=== PATIENT | male | born 1965 | race Caucasian/White ===

== ENCOUNTER 2021-07-23 14:48 | Emergency (ER) | payer BC, SELFPAY ==
--- NOTE | ~2021-07-23 | XR_ITS ---
EXAMINATION: XR FOOT, LEFT CLINICAL INFORMATION: Foot pain COMPARISON: None TECHNIQUE: AP, lateral, and oblique views of the left foot. FINDINGS: Bones of the midfoot are well aligned. No tarsal, metatarsal or phalangeal fracture. Prominent plantar calcaneal enthesophytes. No focal soft tissue swelling. No radiopaque foreign body. XR/XR foot LT 2V IMPRESSION: No fracture.
[2021-07-23 15:06] VITALS: BP 195/105; PULSE 74; RESP 18; TEMP 37; O2SAT 97; BMI 32.8
--- NOTE | 2021-07-23 15:41 | ED.EXTPRO ---
HPI - Extremity Problem General Chief complaint: Extremity Injury, Lower Stated complaint: foot injury Time Seen by Provider: 07/23/21 15:22 Source: patient Mode of arrival: ambulatory Limitations: no limitations History of Present Illness HPI Narrative: 56-year-old male with a past medical history of plantar fasciitis presenting to the ED with complaints of left foot pain on the plantar aspect after he picked up a box this morning and he reports when he bears weight he has severe pain. Reports he suffers from plantar fasciitis although has insoles and has not had pain like this for years although it feels like his prior plantar fasciitis pain. He denies any dizziness, lightheadedness, headache, neck pain/stiffness, chest pain or shortness of breath, dyspnea exertion, orthopnea, palpitations, lower extremity edema or calf tenderness, recent falls or any other symptoms complaints or concerns at this time. MD Complaint: extremity pain Onset (ago): day(s) (This morning) Pain Consistency: constant Location: left and other (Foot) Quality: stabbing, aching and sharp Radiation: none Relieving factors: nothing Exacerbating factors: weight bearing Associated symptoms: denies other symptoms Context: other (hx of plantar fascitis ) Related Data Previous Rx's Medication Instructions Recorded acetaminophen 500 mg tablet 1,000 mg PO QID PRN #14 tab 07/23/21 (Tylenol Extra Strength) ibuprofen 800 mg tablet 800 mg PO Q8H PRN #14 tab 07/23/21 lidocaine HCl 4 % topical cream 1 appl TOPICAL BID PRN #120 g 07/23/21 (Aspercreme (lidocaine HCl)) oxycodone 5 mg tablet 5 mg PO Q6H PRN #14 tab 07/23/21 Allergies Allergy/AdvReac Type Severity Reaction Status Date / Time No Known Allergies Allergy Verified 07/23/21 16:33 Review of Systems Review of Systems: Constitutional : No Weight loss, No Fever, No Chills, No Night Sweats, No Fatigue, No Malaise ENT/Mouth : No Hearing loss, No Ear Pain, No Nasal Congestion, No Sinus Pain, No Hoarseness, No sore throat, No Rhinorrhea, No Swallowing Difficulty Eyes: No Eye Pain, No Swelling, No Redness, No Foreign Body, No Discharge, No Vision Changes Cardiovascular : No Chest Pain, No SOB, No Dyspnea on Exertion, No Orthopnea, No Edema, No Palpitations Respiratory : No Cough, No Sputum, No Wheezing, No Smoke Exposure, No Dyspnea Gastrointestinal : No Nausea, No Vomiting, No Diarrhea, No Constipation, No abdominal Pain, No Hematochezia, No Melena Genitourinary : no irregular bleeding, No Dysuria, No Urinary Frequency, No Hematuria, No Urinary Incontinence, No Urgency, No Flank Pain, No Urinary Flow Changes, No Hesitancy Musculoskeletal : + left foot joint pain, No Myalgias, No Joint Swelling Skin : No Skin Lesions, No rash Neuro : No Weakness, No Numbness, No Paresthesias, No Loss of Consciousness, No Dizziness, No Headache Psych : No Anxiety/Panic, No Depression, No SI/HI/AH/VH, No Social Issues, Heme/Lymph: No Bruising, No Bleeding,No Lymphadenopathy Endocrine : No Polyuria, No Polydipsia, No Temperature Intolerance Yes all other systems are reviewed and are negative [facility] Past Medical History Attestation statement: The following information was validated with the patient. Medical History HLD (hyperlipidemia) HTN (hypertension) Social History Social History Advance Directives: No Advance Directives Information Provided: No Physical Exam Vital Signs: Vital Signs: Last Vital Signs Temp 98.6 F 07/23/21 15:06 Pulse 74 07/23/21 15:06 Resp 18 07/23/21 15:06 BP 195/105 H 07/23/21 15:06 Pulse Ox 97 07/23/21 15:06 Body Mass Index 32.8 vital signs have been reviewed as normal and appeared to be correct. Blood pressure hypertensive at 195/105. Heart rate normal. Respiration rate normal. Temperature normal. Oxygen saturation normal. Appearance: Alert. Oriented X3. No acute distress. Head: Normal external exam. Normocephalic. Atraumatic. Eyes: PERRLA. EOMI. Conjunctiva and sclera normal. Eyelids normal. ENT: Pharynx normal. Uvula midline. Moist mucous membranes. Neck: Normal inspection. Neck supple. FROM. CVS: Normal heart rate and rhythm. Respiratory: No respiratory distress. Painless inspiration. Skin: Skin warm and dry. Normal skin color. Normal skin turgor. No rashes/lesions/lacerations noted. Extremities: Patient with tenderness up patient to the left foot on the so at the plantar aspect consistent with plantar fasciitis. No signs of infection. No calf tenderness is noted bilaterally. No lower extremity edema. Otherwise all other Extremities exhibit normal range of motion and nontender. Neuro: Oriented X 3. No motor deficit. No sensory deficit. Reflexes normal. Normal steady gait. No focal neuro deficits noted. Vascular: + radial pulses/+ 2 distal pedal pulses/+2 dorsalis pedis b/l. Normal cap refill. No cyanosis noted to upper extremity nails and lower extremity toes nails. Course Course Course Narrative: 56-year-old male with a past medical history of plantar fasciitis presenting to the ED with complaints of left foot pain on the plantar aspect after he picked up a box this morning and he reports when he bears weight he has severe pain. Reports he suffers from plantar fasciitis although has insoles and has not had pain like this for years although it feels like his prior plantar fasciitis pain. He denies any dizziness, lightheadedness, headache, neck pain/stiffness, chest pain or shortness of breath, dyspnea exertion, orthopnea, palpitations, lower extremity edema or calf tenderness, recent falls or any other symptoms complaints or concerns at this time. On exam patient has tenderness palpation to the plantar aspect consistent with plantar fasciitis. Not consistent with Achilles tendon rupture. No obvious deformities noted. No signs of infection. No lower extremity edema or calf tenderness is noted. Therefore x-ray obtained if negative will DC home with symptomatic treatment instructions to follow-up with die cast technician/PCP. Patient understands agrees with this plan. MDM - Extremity (Nontraumatic) Medical Records Attestation: I reviewed the patient's medical records. Imaging Data X-ray of left foot: Attestation: I personally reviewed and interpreted this imaging study as follows: Radiologist's impression: FINDINGS: Bones of the midfoot are well aligned. No tarsal, metatarsal or phalangeal fracture. Prominent plantar calcaneal enthesophytes. No focal soft tissue swelling. No radiopaque foreign body.? XR/XR foot LT 2V IMPRESSION: No fracture. Discharge Plan Discharge Clinical Impression: Plantar fasciitis of left foot Patient Disposition: Home, Self-Care Instructions: Plantar Fasciitis (ED), Plantar Fasciitis Exercises (ED) Prescriptions: New lidocaine HCl [Aspercreme (lidocaine HCl)] 4 % cream 1 appl topical BID PRN (Reason: pain) Qty: 120 RF: 0 ibuprofen 800 mg tablet 800 mg PO Q8H PRN (Reason: pain) Qty: 14 RF: 0 acetaminophen [Tylenol Extra Strength] 500 mg tablet 1,000 mg PO QID PRN (Reason: fever or pain) Qty: 14 RF: 0 oxycodone 5 mg tablet 5 mg PO Q6H PRN (Reason: pain) Qty: 14 RF: 0 Referrals: Sly Kohler MD [Physician] - 2 weeks Jaclyn Hill NP [Primary Care Provider] - 2 days Eric Little [Physician] - 2 days Print Language: Turkish
[2021-07-23 17:16] VITALS: BP 154/86; PULSE 73; RESP 17; O2SAT 98
== END 2021-07-23 17:18 | disposition home or self-care (01) ==
PROVIDERS: Emergency Provider Emergency Medicine; PCP Nurse Practitioner Family
DX: M72.2 Plantar fascial fibromatosis (principal); I10 Essential (primary) hypertension
CPT/HCPCS: 73620; 99283

== ENCOUNTER 2021-10-20 18:50 | Emergency (ER) | payer BC, SELFPAY ==
--- NOTE | ~2021-10-20 | US_ITS ---
EXAMINATION: US VENOUS ULTRASOUND WITH DOPPLER LOWER EXTREMITY, RIGHT CLINICAL INFORMATION: Right lower extremity pain and swelling. COMPARISON: None TECHNIQUE: Ultrasound of the deep veins is performed from the hip to the calf with compression sonography and color and pulse Doppler assessment. Spectral analysis with color-flow imaging is performed. FINDINGS: There is normal venous compression and respiratory variation and augmented flow. The visualized common femoral vein, superficial femoral vein, profunda femoral vein, popliteal vein, and the trifurcation region shows no evidence of deep venous thrombosis. There is no significant popliteal fossa cyst. Prominent right inguinal lymph nodes but with preserved fatty hilum and reniform shape, likely reactive. If the patient's symptoms persist, followup ultrasound in 5 days 7 days might be of value to exclude proximal propagation from a non-visualized calf vein. US/US venous duplex LE RT IMPRESSION: No DVT demonstrated in the right lower extremity. Prominent right inguinal lymph nodes are likely reactive, correlate with physical examination.
--- NOTE | ~2021-10-20 | XR_ITS ---
EXAMINATION: XR KNEE, RIGHT CLINICAL INFORMATION: Pain/swelling. COMPARISON: None. TECHNIQUE: Four views of the right knee. FINDINGS: No acute fractures or malalignment. Mild tricompartmental degenerative changes with joint space narrowing, subcortical sclerosis and minimal osteophyte. These are more apparent in the medial compartment. Small enthesophytes the superior pole of the patella. Well-corticated bony fragment adjacent to the head of the proximal fibula, likely sequela of a prior injury or degenerative in nature. Small joint effusion. XR/XR knee RT 3V IMPRESSION: No acute fractures or malalignment. Mild degenerative osteoarthritis. Small joint effusion.
[2021-10-20 19:14] VITALS: BP 150/76; PULSE 89; RESP 20; TEMP 36.2; O2SAT 97; BMI 34.2
--- NOTE | 2021-10-20 21:57 | ED_ITS ---
HPI - Extremity Problem General Chief complaint: Extremity Problem Stated complaint: rt leg swollen ? clot Time Seen by Provider: 10/20/21 19:12 Source: patient Mode of arrival: ambulatory Limitations: no limitations History of Present Illness HPI Narrative: 56 years old male came in for evaluation of right knee pain. Right knee pain and swelling started 3 days ago, described pain as moderate 5/10, constant, with no radiation, patient was seen and evaluated by his PCP yesterday did blood workup, patient return to the emergency room after notice increased swelling in the right leg, right knee with worsening of the pain to severe 10/10. Patient declined any fever or chills, no trauma to the right knee, able to bend the knee with pain. No history or concern of STD. Related Data Previous Rx's Medication Instructions Recorded acetaminophen 500 mg tablet 1,000 mg PO QID PRN #14 tab 07/23/21 (Tylenol Extra Strength) ibuprofen 800 mg tablet 800 mg PO Q8H PRN #14 tab 07/23/21 lidocaine HCl 4 % topical cream 1 appl TOPICAL BID PRN #120 g 07/23/21 (Aspercreme (lidocaine HCl)) oxycodone 5 mg tablet 5 mg PO Q6H PRN #14 tab 07/23/21 cephalexin 500 mg capsule 500 mg PO BID 10 Days #20 cap 10/20/21 ibuprofen 600 mg tablet 600 mg PO Q8H PRN #14 tab 10/20/21 sulfamethoxazole 800 1 tab PO BID #20 tab 10/20/21 mg-trimethoprim 160 mg tablet (Bactrim DS) Allergies Allergy/AdvReac Type Severity Reaction Status Date / Time No Known Allergies Allergy Verified 10/20/21 19:22 Review of Systems Review of Systems: all other systems are reviewed and are negative Constitutional: Reports as per HPI and Reports no additional constitutional complaints Eyes: Reports as per HPI and Reports no additional eye complaints Reports system reviewed and no additional complaints, except as documented Cardiovascular: Reports as per HPI and Reports no additional cardiovascular complaints Respiratory: Reports as per HPI and Reports no additional respiratory complaints Gastrointestinal: Reports as per HPI and Reports no additional gastrointestinal complaints Genitourinary: Reports no additional female genitourinary complaints Musculoskeletal: Reports no additional musculoskeletal complaints Skin/Breast: Reports system reviewed and no additional complaints, except as docu Psychiatric: Reports no additional psychiatric complaints Endocrine: Reports no additional endocrine complaints Hematologic/Lymphatic: Reports no additional hematologic/lymphatic complaints Allergic/Immunologic: Reports no additional allergic/immunologic complaints Reports system reviewed and no additional complaints, except as documented and Reports Abnormal speech present [facility] Past Medical History Medical History HLD (hyperlipidemia) HTN (hypertension) Social History Social History Advance Directives: No Physical Exam Vital Signs: Vital Signs: Last Vital Signs Temp 97.2 F 10/20/21 19:14 Pulse 89 10/20/21 19:14 Resp 20 10/20/21 19:14 BP 150/76 H 10/20/21 19:14 Pulse Ox 97 10/20/21 19:14 BMI result Body Mass Index 34.2 Vital signs have been reviewed as appeared to be correct. Blood pressure normal. Heart rate normal. Respiration rate normal. Temperature normal. O xygen saturation normal. Appearance: Alert. Oriented X3. No acute distress. Head: Normal external exam. Normocephalic. Atraumatic. No Wade signs noted. No raccoon eyes noted Eyes: PERRLA. EOMI. Conjunctiva and sclera normal. Eyelids normal. ENT: TM's Normal. Pharynx normal. Uvula midline. Moist mucous membranes. No trismus noted. No drooling noted. No muffled voice noted. Neck: Normal inspection. Neck supple. FROM. No adenopathy. Thyroid Normal. No meningeal signs. No neck mass noted. CVS: Normal heart rate and rhythm. Heart sound normal. No murmurs noted. Pulses normal throughout. Respiratory: No respiratory distress. Painless inspiration. Breath sounds normal. No wheezes/rales/rhonchi noted. Chest nontender. No accessory muscle usage noted or decreased air movement noted. Abdomen: Soft and nontender. Bowel sounds normal in all 4 quadrants. No d istention noted. No organomegaly noted. No visible injury noted. Back: No CVA tenderness. Full range of motion noted. Skin: Skin warm and dry. Normal skin color. Normal skin turgor. No rashes/l esions/lacerations noted. Extremities: Right knee exam: Diffuse redness and hotness over right knee and right leg, right leg edema +2 pitting edema, right knee joint effusion, limited range motion due to pain. Neuro: Oriented X 3. Cranial nerve exam: II-XII are grossly intact No motor deficit. No sensory deficit. Reflexes normal. Course Course Course Narrative: Assessment and plan. Two days of right knee/ leg pain and swelling, no history of trauma. 1. Right knee x-ray showing no fracture or malalignment, right knee ultrasound showing no DVT, patient has and elevated WBCs, elevation sed rate, elevation of CRP, right knee arthrocentesis fluid analyses not consistent with septic arthritis. Will treat the patient with Keflex/ Bactrim for 7 days. MDM - Extremity (Nontraumatic) Lab Data Result diagrams: 10/20/21 22:17 10/20/21 22:17 Labs: Lab Results 10/20/21 10/20/21 10/20/21 Range/Units 22:17 22:17 22:17 WBC 14.1 H (4.8-10.8) X10*3/uL RBC 4.42 L (4.60-5.80) X10*6/uL Hgb 13.2 L (14.0-18.0) g/dl Hct 39.4 L (42.0-52.0) % MCV 89.1 (80.0-98.0) fL MCH 29.9 (27.0-33.0) pg MCHC 33.5 (31.0-36.0) g/dl RDW 12.6 (11.0-16.0) % Plt Count 206 (160-400) X10*3/uL MPV 10.1 (9.4-12.4) fL Immature Gran % (Auto) 0.3 (0.0-0.4) % Neut % (Auto) 68.2 (45-73) % Lymph % (Auto) 17.6 L (20-40) % Anderson % (Auto) 12.7 H (2-11) % Eos % (Auto) 1.0 (0-4) % Baso % (Auto) 0.2 (0-2) % Lymph # (Auto) 2.5 (1.2-4.9) X10*3/uL Anderson # (Auto) 1.8 H (0.1-1.2) X10*3/uL Eos # (Auto) 0.1 (0.0-0.4) X10*3/uL Baso # (Auto) 0.0 (0.0-0.2) X10*3/uL Abs Immat Gran (auto) 0.04 H (0.00-0.03) X10*3/uL Absolute Neuts (auto) 9.6 H (2.0-8.3) x10*3/uL Absolute Nucleated RBC 0.000 (0.0-0.012) X10*3/uL Nucleated RBC % (auto) 0.0 (0.0-0.2) /100WBC Smear Tech's Comments VERIFIED ESR 18 H (0-15) MM/HR Sodium 140 (135-145) mmol/L Potassium 4.2 (3.3-5.1) mmol/L Chloride 108 (96-108) mmol/L Carbon Dioxide 25 (22-29) mmol/L Anion Gap 11 L (12-20) BUN 25 H (9-16) mg/dL Creatinine 0.91 (0.5-1.4) mg/dL Estim Creat Clear Calc 112.1 Estimated GFR > 60 Random Glucose 100 (60-115) mg/dL Calcium 8.8 (8.4-10.2) mg/dL C-Reactive Protein 5.92 H (< or = 0.50) mg/dL C-React Prot High Sens Synovial Source Synovial WBC X10*3/uL Synovial RBC X10*6/uL 10/20/21 10/20/21 Range/Units 22:17 22:25 WBC (4.8-10.8) X10*3/uL RBC (4.60-5.80) X10*6/uL Hgb (14.0-18.0) g/dl Hct (42.0-52.0) % MCV (80.0-98.0) fL MCH (27.0-33.0) pg MCHC (31.0-36.0) g/dl RDW (11.0-16.0) % Plt Count (160-400) X10*3/uL MPV (9.4-12.4) fL Immature Gran % (Auto) (0.0-0.4) % Neut % (Auto) (45-73) % Lymph % (Auto) (20-40) % Anderson % (Auto) (2-11) % Eos % (Auto) (0-4) % Baso % (Auto) (0-2) % Lymph # (Auto) (1.2-4.9) X10*3/uL Anderson # (Auto) (0.1-1.2) X10*3/uL Eos # (Auto) (0.0-0.4) X10*3/uL Baso # (Auto) (0.0-0.2) X10*3/uL Abs Immat Gran (auto) (0.00-0.03) X10*3/uL Absolute Neuts (auto) (2.0-8.3) x10*3/uL Absolute Nucleated RBC (0.0-0.012) X10*3/uL Nucleated RBC % (auto) (0.0-0.2) /100WBC Smear Tech's Comments ESR (0-15) MM/HR Sodium (135-145) mmol/L Potassium (3.3-5.1) mmol/L Chloride (96-108) mmol/L Carbon Dioxide (22-29) mmol/L Anion Gap (12-20) BUN (9-16) mg/dL Creatinine (0.5-1.4) mg/dL Estim Creat Clear Calc Estimated GFR Random Glucose (60-115) mg/dL Calcium (8.4-10.2) mg/dL C-Reactive Protein (< or = 0.50) mg/dL C-React Prot High Sens Cancelled Synovial Source right knee Synovial WBC 0.519 X10*3/uL Synovial RBC 0.179 X10*6/uL Procedures Joint Aspiration/Injection Joint Asp./Inject. 1: Time Out Performed: Yes Side of body: right Joint Aspirated: knee Ultrasound Guidance: No Skin Prep: Povidone-Iodine1% Local Anesthetic: lidocaine 2% Amount of anesthesia used (mL): 10 Total fluid obtained (mL): 30 Patient Tolerated Procedure: well Complications: none Discharge Plan Discharge Clinical Impression: Cellulitis, Lower extremity edema Patient Disposition: Home, Self-Care Instructions: Cellulitis (ED), Leg Edema (ED) Additional Instructions: elevate your right leg, avoid standing for prolonged time, seek medical attention if he develops fever, or increased swelling in the right knee. Prescriptions: New cephalexin 500 mg capsule 500 mg PO BID 10 Days Qty: 20 RF: 0 sulfamethoxazole-trimethoprim [Bactrim DS] 800-160 mg tablet 1 tab PO BID Qty: 20 RF: 0 ibuprofen 600 mg tablet 600 mg PO Q8H PRN (Reason: pain) Qty: 14 RF: 0 No Action lidocaine HCl [Aspercreme (lidocaine HCl)] 4 % cream 1 appl topical BID PRN (Reason: pain) Qty: 120 RF: 0 ibuprofen 800 mg tablet 800 mg PO Q8H PRN (Reason: pain) Qty: 14 RF: 0 acetaminophen [Tylenol Extra Strength] 500 mg tablet 1,000 mg PO QID PRN (Reason: fever or pain) Qty: 14 RF: 0 oxycodone 5 mg tablet 5 mg PO Q6H PRN (Reason: pain) Qty: 14 RF: 0 Referrals: Evie Zarate PA-C [Primary Care Provider] - 2 days Stand Alone Forms: Work/School Release
[2021-10-20 22:23] LABS: Basophils Percent Auto 0.2 % (0-2); Eosinophils Absolute Auto 0.1 X10*3/uL (0.0-0.4); Hematocrit 39.4 % (42.0-52.0); Hemoglobin 13.2 g/dl (14.0-18.0); Imm Gran Abs Auto 0.04 X10*3/uL (0.00-0.03); Imm Gran Pct Auto 0.3 % (0.0-0.4); Lymphocytes Absolute Auto 2.5 X10*3/uL (1.2-4.9); Lymphocytes Percent Auto 17.6 % (20-40); MANUAL DIFF FLAG SCAN; Mean Corpuscular HGB Conc 33.5 g/dl (31.0-36.0); Mean Corpuscular Hemoglobin 29.9 pg (27.0-33.0); Mean Corpuscular Volume 89.1 fL (80.0-98.0); Mean Platelet Volume 10.1 fL (9.4-12.4); Monocytes Absolute Auto 1.8 X10*3/uL (0.1-1.2); Monocytes Percent Auto 12.7 % (2-11); Neutrophils Absolute Auto 9.6 x10*3/uL (2.0-8.3); Neutrophils Percent Auto 68.2 % (45-73); Platelet Count 206 X10*3/uL (160-400); Red Blood Count 4.42 X10*6/uL (4.60-5.80); Red Cell Distribution Width 12.6 % (11.0-16.0); SCAN SMEAR FLAG 1; White Blood Count 14.1 X10*3/uL (4.8-10.8)
[2021-10-20 22:38] LABS: Anion Gap 11 (12-20); Blood Urea Nitrogen 25 mg/dL (9-16); Calcium 8.8 mg/dL (8.4-10.2); Carbon Dioxide 25 mmol/L (22-29); Chloride 108 mmol/L (96-108); Creatinine Clr Calc Pharmacy 112.1; Estimated Glomerular Filt Rate > 60; Glucose Random 100 mg/dL (60-115); Potassium 4.2 mmol/L (3.3-5.1); Sodium 140 mmol/L (135-145)
[2021-10-20 22:47] LABS: SLIDE REVIEW VERIFIED
[2021-10-20 22:57] VITALS: BP 138/77; PULSE 76; RESP 17; TEMP 36.6; O2SAT 97
[2021-10-20 22:58] LABS: Source Synovial Fluid right knee
[2021-10-20 22:58] LABS: Erythrocyte Sedimentation Rate 18 MM/HR (0-15)
[2021-10-20 23:03] LABS: MN% 31.5 %; PMN% 68.5 %; RBC Synovial Fluid 0.179 X10*6/uL; WBC Synovial Fluid 0.519 X10*3/uL
[2021-10-20 23:06] LABS: C Reactive Protein 5.92 mg/dL (< or = 0.50)
[2021-10-21] MEDS: Lidocaine HCl 1 % 20 ML VIAL SUBCUT (00:20)
[2021-10-21] MEDS: Sulfamethox/Trimeth 800/160 TABLET 1 TAB PO (00:20)
[2021-10-21] MEDS: cephALEXin 500 MG CAPSULE PO (00:20)
[2021-10-21 00:44] LABS: BF Shift QC OK YES; Basophils Synovial Fluid 2 %; Lymphocytes Synovial Fluid 12 %; Man Diluent Bkgrd OK YES; Monocytes Synovial Fluid 16 %; Neutrophils Synovial Fluid 69 %; Other Cells Synovial Fluid 1
[2021-10-21 11:06] LABS: Glucose Synovial Fluid 35
[2021-10-21 11:07] LABS: Total Protein Synovial Fluid 1.1; Uric Acid Synovial Fluid 2
== END 2021-10-21 00:35 | disposition home or self-care (01) ==
PROVIDERS: Emergency Provider Emergency Medicine; PCP Physician Assistant
DX: L03.115 Cellulitis of right lower limb (principal); R60.0 Localized edema; M79.605 Pain in left leg; M79.604 Pain in right leg; Z79.899 Other long term (current) drug therapy
CPT/HCPCS: 20610; 73562; 80048; 82945; 84157; 84560; 85025; 85652; 86140; 87071; 87073; 87205; 89051; 89060; 93971; 99284; 99285

== ENCOUNTER 2021-10-24 21:54 | Emergency (ER) | payer BC, SELFPAY ==
[2021-10-24 22:04] VITALS: BP 143/70; PULSE 86; RESP 18; TEMP 36.9; O2SAT 96; BMI 33.5
== END 2021-10-25 02:15 | disposition left against medical advice (07) ==
PROVIDERS: Emergency Provider Emergency Medicine; PCP Physician Assistant
DX: M25.561 Pain in right knee (principal); M25.461 Effusion, right knee
CPT/HCPCS: 99281; 99282